=== PATIENT | female | born 1980 | race Caucasian/White ===

== ENCOUNTER 2016-12-25 10:41 | Emergency (ER) | payer MEDICAID ==
[2016-12-25 11:14] VITALS: RESP 16
--- NOTE | 2016-12-25 12:20 | ED ---
General Adult HPI - General Chief complaint: Skin/Abscess/Foreign Body Stated complaint: spider bite Time Seen by Provider: 12/25/16 11:53 Source: patient, RN notes reviewed Mode of arrival: ambulatory Limitations: no limitations - History of Present Illness Initial comments: Patient's a 36-year-old female who presents emergency room today with a chief complaint of increased swelling locally to the left lower anterior. Does admit that he noticed bug bite yesterday. Does admit that she was scratched in the left eye by her dog 2 days ago. States she went to urgent care earlier today for some eyedrops. States that they were concerned about this area of swelling locally just beneath the left ear advised to come here to the emergency room. Patient states she feels like it is a bug bite. She does admit to some local tenderness. She denies any drainage. Denies any other complaints or associated symptoms. Patient denies any recent fever, chills, shortness of breath, chest pain, back pain, abdominal pain, nausea or vomiting, numbness or tingling, dysuria or hematuria, constipation or diarrhea, headaches or visual changes, or any other complaints. - Related Data Previous Rx's Medication Instructions Recorded Sulfamethox-Tmp 800-160Mg [Bactrim 1 tab PO Q12HR #20 tab 12/25/16 DS 800-160 mg] Allergies Allergy/AdvReac Type Severity Reaction Status Date / Time No Known Allergies Allergy Verified 12/25/16 11:11 Review of Systems ROS Statement: Those systems with pertinent positive or pertinent negative responses have been documented in the HPI. ROS Other: All systems not noted in ROS Statement are negative. Past Medical History Past Medical History: Thyroid Disorder History of Any Multi-Drug Resistant Organisms: None Reported Additional Past Surgical History / Comment(s): D&C Past Psychological History: No Psychological Hx Reported Smoking Status: Never smoker Past Alcohol Use History: None Reported Past Drug Use History: None Reported General Exam - General Exam Comments Initial Comments: General: The patient is awake and alert, in no distress, and does not appear acutely ill. Eye: Pupils are equal, round and reactive to light, extra-ocular movements are intact. No nystagmus. Redness locally to the left conjunctiva. Right conjunctiva clear. No signs of icterus. Ears, nose, mouth and throat: There are moist mucous membranes and no oral lesions. Neck: The neck is supple, there is no tenderness or JVD. Cardiovascular: There is a regular rate and rhythm. No murmur, rub or gallop is appreciated. Respiratory: Lungs are clear to auscultation, respirations are non-labored, breath sounds are equal. No wheezes, stridor, rales, or rhonchi. Musculoskeletal: Normal ROM, no tenderness. Strength 5/5. Sensation intact. Pulses equal bilaterally 2+. Neurological: A&O x 3. CN II-XII intact, There are no obvious motor or sensory deficits. Coordination appears grossly intact. Speech is normal. Skin: Mild redness no firmness on exam. Local disbelief the left ear. Psychiatric: Cooperative, appropriate mood & affect, normal judgment. Limitations: no limitations Course Vital Signs 12/25/16 11:11 Temperature 98.4 F Pulse Rate 85 Respiratory 16 Rate Blood Pressure 140/91 O2 Sat by Pulse 99 Oximetry Medical Decision Making - Medical Decision Making Patient does have antibiotics to use for the left side. Also be placed on oral antibiotics cover for possible abscess formation just below the left ear. Advised use warm compresses. Advised return if symptoms increase or worsen. Patient states understanding and is in agreement with this plan. Disposition Clinical Impression: Abscess Disposition: HOME SELF-CARE Condition: Good Instructions: Abscess (ED) Additional Instructions: Please use medication as discussed. Please follow-up with family doctor in the next 2 days of symptoms have not improved. Please return to emergency room if the symptoms increase or worsen or for any other concerns. Prescriptions: Sulfamethox-Tmp 800-160Mg [Bactrim DS 800-160 mg] 1 tab PO Q12HR #20 tab Time of Disposition: 12:18
[2016-12-25 12:28] VITALS: BP 138/71; PULSE 110; TEMP 98
== END 2016-12-25 12:50 | disposition home or self-care (01) ==
LOC: EC 10:41
DX: H66.42 Suppurative otitis media, unspecified, left ear (principal)
CPT/HCPCS: 99282

== ENCOUNTER → 2017-01-01 | Outpatient (CLI) | payer MEDICAID ==
--- NOTE | 2017-01-01 19:12 | CT ---
EXAMINATION TYPE: CT soft tissue neck w con DATE OF EXAM: 01/01/2017 6:55 PM COMPARISON: NONE HISTORY: Left sided neck swelling marked by BB CT DLP: 355.1 mGycm Automated exposure control for dose reduction was used. CONTRAST: CT scan of the neck is performed following with IV Contrast, patient injected with 100 mL of Omnipaqu e 300. Axial images are obtained, coronal and sagittal reformatted images are reviewed. FINDINGS: The upper lung corral are clear. There is normal branching pattern of the great vessels on the aortic arch. Thyroid gland is almost absent. This could be a total thyroidectomy. There is normal contrast opacification of the carotid arteries and jugular veins. Parotid glands are symmetric. Submandibular salivary glands are symmetric. There is no sign of a pharyngeal mass. Trache a appears normal. There are a few anterior triangle lymph nodes that measure up to 1.5 cm. There are a few posterior triangle lymph nodes that measure up to 1.2 cm. Cervical spine appears intact. IMPRESSION: Mild cervical adenopathy. There is a superficial 1.3 cm lymph node in the left submandib ular region that is marked is an area of concern. No abscess seen. This is probably palpable.
== END | disposition home or self-care (01) ==
LOC: RADCTMAIN 18:34
PROVIDERS: ATTEND Physician Assistant Medical
DX: R59.0 Localized enlarged lymph nodes (principal)
CPT/HCPCS: 70491; Q9967

== ENCOUNTER → 2017-01-09 | Outpatient (CLI) | payer MEDICAID ==
[2017-01-09 08:51] LABS: Anion Gap 9 mmol/L; Blood Urea Nitrogen 12 mg/dL (7-17); Calcium 9.3 mg/dL (8.4-10.2); Carbon Dioxide 27 mmol/L (22-30); Chloride 106 mmol/L (98-107); Cholesterol 193 mg/dL (<200); Glucose 94 mg/dL (74-99); HDL Cholesterol 50 mg/dL (40-60); Non-African American GFR(MDRD) >60 (>60 ml/min/1.73 sqM); Potassium 4.3 mmol/L (3.5-5.1); Sodium 142 mmol/L (137-145); Triglycerides 138 mg/dL (<150)
== END ==
LOC: LABWHC1 07:27
PROVIDERS: ATTEND Otolaryngology
DX: E06.3 Autoimmune thyroiditis (principal)
CPT/HCPCS: 36415; 80048; 80061; 82306; 84439; 84443; 86376

== ENCOUNTER → 2017-04-10 | Outpatient (CLI) | payer MEDICAID ==
[2017-04-10 08:15] LABS: Basophils # (A) 0.1 k/uL (0-0.2); Basophils % (A) 1 %; Eosinophils # (A) 0.2 k/uL (0-0.7); Eosinophils % (A) 3 %; HCT 36.8 % (34.0-46.0); HDW 2.88; HGB 11.1 gm/dL (11.4-16.0); Hypochromasia Marked; Luc # (Auto) 0.13; Luc % (Auto) 2; Lymphocytes # (A) 1.2 k/uL (1.0-4.8); Lymphocytes % (A) 21 %; MCH 22.3 pg (25.0-35.0); MCHC 30.3 g/dL (31.0-37.0); MCV 73.6 fL (80.0-100.0); Mean Platelet Volume 8.1; Microcytosis Slight; Monocytes # (A) 0.5 k/uL (0-1.0); Monocytes % (A) 9 %; Neutrophils # (A) 3.7 k/uL (1.3-7.7); Neutrophils % (A) 64 %; RDW 15.9 % (11.5-15.5); WBC 5.7 k/uL (3.8-10.6); WBC (Perox) 5.71
[2017-04-10 10:16] LABS: Anion Gap 12 mmol/L; Blood Urea Nitrogen 15 mg/dL (7-17); Calcium 9.4 mg/dL (8.4-10.2); Carbon Dioxide 27 mmol/L (22-30); Chloride 105 mmol/L (98-107); Cholesterol 212 mg/dL (<200); Glucose 99 mg/dL (74-99); HDL Cholesterol 55 mg/dL (40-60); Non-African American GFR(MDRD) >60 (>60 ml/min/1.73 sqM); Potassium 4.4 mmol/L (3.5-5.1); Sodium 144 mmol/L (137-145); Triglycerides 74 mg/dL (<150)
== END | disposition home or self-care (01) ==
LOC: LABWHC1 06:35
PROVIDERS: ATTEND Internal Medicine Endocrinology, Diabetes & Metabolism
DX: E06.3 Autoimmune thyroiditis (principal); E55.9 Vitamin D deficiency, unspecified
CPT/HCPCS: 36415; 80048; 80051; 80061; 82306; 82565; 82947; 84439; 84443; 84481; 84520; 85025

== ENCOUNTER → 2017-07-24 | Outpatient (CLI) | payer MEDICAID | END | disposition home or self-care (01) | LOC: LABWHC1 07:23 | PROVIDERS: ATTEND Internal Medicine Endocrinology, Diabetes & Metabolism | DX: E55.9 Vitamin D deficiency, unspecified (principal); E06.3 Autoimmune thyroiditis | CPT/HCPCS: 36415; 82306; 84439; 84443; 84481 ==

== ENCOUNTER → 2018-01-14 | Outpatient (CLI) | payer MEDICAID ==
[2018-01-14 16:23] LABS: Calcium 9.4 mg/dL (8.4-10.2)
[2018-01-14 16:41] LABS: T4, Free (Free Thyroxine) 0.81 ng/dL (0.78-2.19)
== END | disposition home or self-care (01) ==
LOC: LABWHC1 14:20
PROVIDERS: ATTEND Internal Medicine Endocrinology, Diabetes & Metabolism
DX: E55.9 Vitamin D deficiency, unspecified (principal); E06.3 Autoimmune thyroiditis
CPT/HCPCS: 36415; 82306; 82310; 84439; 84443; 84481

== ENCOUNTER → 2018-02-25 | Outpatient (CLI) | payer MEDICAID ==
[2018-02-25 08:48] LABS: T4, Free (Free Thyroxine) 0.45 ng/dL (0.78-2.19)
== END | disposition home or self-care (01) ==
LOC: LABWHC1 07:50
PROVIDERS: ATTEND Internal Medicine
DX: E06.3 Autoimmune thyroiditis (principal)
CPT/HCPCS: 36415; 84439; 84443

== ENCOUNTER → 2018-04-27 | Outpatient (CLI) | payer MEDICAID ==
[2018-04-27 08:08] LABS: T4, Free (Free Thyroxine) 0.49 ng/dL (0.78-2.19)
== END | disposition home or self-care (01) ==
LOC: LABWHC1 06:49
PROVIDERS: ATTEND Internal Medicine
DX: E06.3 Autoimmune thyroiditis (principal)
CPT/HCPCS: 36415; 84439; 84443

== ENCOUNTER → 2018-07-02 | Outpatient (CLI) | payer MEDICAID ==
--- NOTE | 2018-07-02 15:05 | US ---
EXAMINATION TYPE: US transvaginal DATE OF EXAM: 07/02/2018 COMPARISON: 07/20/2013 CLINICAL HISTORY: N92.0 Menorrhagia. TECHNIQUE: Transvaginal (TV). Date of LMP: 06/16/2018 EXAM MEASUREMENTS: Uterus: 8.6 x 4.6 x 5.6 cm Endometrial Stripe: 1.4 cm Right Ovary: 2.5 x 1.3 x 2.6 cm Left Ovary: 3.2 x 2.2 x 3.2 cm 1. Uterus: Anteverted wnl 2. Endometrium: wnl 3. Right Ovary: wnl 4. Left Ovary: dominant follicle measures 1.2 x 1.2 x 1.7 cm 5. Bilateral Adnexa: wnl 6. Posterior cul-de-sac: no free fluid IMPRESSION: 1. Endometrial thickness is upper limits of normal. Reevaluation at different timing of the menstrual cycle could be performed to exclude endometrial thickening that may relate to endometrial hyperplasi a, polyp or less likely mass. 2. Dominant left ovarian follicle measuring 1.7 cm, likely physiologic.
== END | disposition home or self-care (01) ==
LOC: RADUSWWP 14:05
PROVIDERS: ATTEND Obstetrics & Gynecology
DX: N92.0 Excessive and frequent menstruation with regular cycle (principal)
CPT/HCPCS: 76830

== ENCOUNTER → 2018-07-08 | Outpatient (CLI) | payer MEDICAID ==
[2018-07-08 15:44] LABS: LDL Cholesterol,Calculated 117.4 mg/dL (0.0-131.0); VLDL Calculation 12.6 mg/dL (5.00-40.00)
== END | disposition home or self-care (01) ==
LOC: LABWHC1 07:41
PROVIDERS: ATTEND Obstetrics & Gynecology
DX: Z13.220 Encounter for screening for lipoid disorders (principal)
CPT/HCPCS: 36415; 80061

== ENCOUNTER → 2018-07-19 | Outpatient (CLI) | payer MEDICAID ==
[2018-07-19 15:08] LABS: Basophils % (A) 1 %; Eosinophils # (A) 0.2 k/uL (0-0.7); Eosinophils % (A) 2 %; HCT 38.5 % (34.0-46.0); HGB 11.6 gm/dL (11.4-16.0); Hypochromasia Marked; Lymphocytes # (A) 1.8 k/uL (1.0-4.8); Lymphocytes % (A) 26 %; MCH 21.9 pg (25.0-35.0); MCV 72.9 fL (80.0-100.0); Mean Platelet Volume 7.6; Microcytosis Slight; Monocytes # (A) 0.5 k/uL (0-1.0); Monocytes % (A) 7 %; Neutrophils # (A) 4.3 k/uL (1.3-7.7); Neutrophils % (A) 63 %; Platelet Count 170 k/uL (150-450); RBC 5.27 m/uL (3.80-5.40); RDW 15.1 % (11.5-15.5); WBC 6.8 k/uL (3.8-10.6)
== END | disposition home or self-care (01) ==
LOC: LABPAT 14:43
PROVIDERS: ATTEND Obstetrics & Gynecology
DX: Z01.812 Encounter for preprocedural laboratory examination (principal)
CPT/HCPCS: 36415; 85025

== ENCOUNTER 2018-07-23 06:29 | Day surgery (SDC) | payer MEDICAID ==
[2018-07-20 14:18] VITALS: BMI 23.2
--- NOTE | 2018-07-22 07:50 | P.HPOB ---
History of Present Illness H&P Date: 07/22/18 Chief Complaint: Menorrhagia This patient is a pleasant 37 yr female with longstanding menorrhagia who is presenting for endometrial ablation for treatment. Her has had a vasectomy and she has had a normal pelvic ultrasound. Bleeding is so heavy that it is interfering with daily activities and lifestyle. Mildly anemia from this as well. Review of Systems Genitourinary: Reports as per HPI, Reports menorrhagia Menstruation: Reports as per HPI Past Medical History Past Medical History: Thyroid Disorder Additional Past Medical History / Comment(s): heavy menstral periods History of Any Multi-Drug Resistant Organisms: None Reported Past Surgical History: No Surgical Hx Reported Additional Past Surgical History / Comment(s): D&C Past Anesthesia/Blood Transfusion Reactions: Motion Sickness Past Psychological History: No Psychological Hx Reported Smoking Status: Never smoker Past Alcohol Use History: None Reported Past Drug Use History: None Reported - Past Family History Mother Family Medical History: No Reported History Medications and Allergies Home Medications Medication Instructions Recorded Confirmed Type Ergocalciferol (Vitamin D2) 50,000 unit PO Q14D 07/20/18 07/20/18 History [Drisdol] Thyroid,Pork [[place] Thyroid] 90 mg PO DAILY 07/20/18 07/20/18 History Allergies Allergy/AdvReac Type Severity Reaction Status Date / Time No Known Allergies Allergy Verified 07/20/18 14:14 Exam - OBG Physical Exam Abdomen: bowel sounds normal, no diffuse tenderness, no bruit present, no guarding noted, no hepatomegaly, no splenomegaly, no mass Vulva: both: normal Vagina: normal moisture, no discharge Cervix: no lesion, no discharge Uterus: normal size, normal contour Adnexa: both: normal Results Normal pelvic ultrasound 07/02/2018 Assessment and Plan Assessment: This is a pleasant 37 yr female with longstanding menorrhagia who presents for endometrial ablation for treatment. Plan is hysteroscopy, D&C, and Novasure endometrial ablation. Shanel and I have discussed this surgery and risks: infection, bleeding, possible uterine perforation and/or thermal injury. All of the patients questions have been answered and a written consent obtained. (1) Menorrhagia Status: Chronic Code(s): N92.0 - EXCESSIVE AND FREQUENT MENSTRUATION WITH REGULAR CYCLE SNOMED Code(s): 638837359
[~2018-07-23 06:29] MED LIST: DEXAMETHASONE SOD PHOSPHATE 10 MG/ML 1 ML VIAL IV ONE; HYDROmorphone 0.5 MG/0.5 ML SYRINGE IVP PRN; LACTATED RINGERS 1,000 ML IV SCH; MIDAZOLAM 2 MG/2 ML VIAL IV PRN; ONDANSETRON 4 MG/2 ML VIAL IVP ONE; Pre Op ABX Message 1 EACH MISC MISCELLANE ONE; SCOPOLAMINE 1.5MG/72HR PATCH TRANSDERM ONE
[2018-07-23 06:49] VITALS: RESP 16
[2018-07-23] MEDS ORDERED: LIDOCAINE 1% INJ 10MG/ML (20 ML MDV) ONE (07:52)
[2018-07-23] MEDS ORDERED: fentaNYL (PF) 50 MCG/ML 2 ML AMP ONE (07:52)
[2018-07-23] MEDS ORDERED: PROPOFOL 10 MG/ML 20 ML VIAL IV ONE (07:52)
--- NOTE | 2018-07-23 08:34 | P.OP ---
Date of Procedure: 07/23/18 Preoperative Diagnosis: Menorrhagia Postoperative Diagnosis: Same Procedure(s) Performed: #1: Hysteroscopy. #2: Dilation and curettage. #3: NovaSure endometrial ablation Anesthesia: MAC Surgeon: Lawrence Jasmine Estimated Blood Loss (ml): 10 Urine output (ml): 50 Pathology: other (Uterine curettings) Condition: stable Disposition: PACU Indications for Procedure: Please see dictated H&P for intimate details of this patient's admission. In brief summary this is a pleasant 37-year-old 3 para 2 female with long- standing menorrhagia requesting NovaSure endometrial ablation for treatment. Patient understands the surgery and risks including risks of infection, bleeding , possible uterine perforation, and/or thermal injury. Operative Findings: This patient is a normal appearing endometrial cavity. Description of Procedure: This patient is taken to the operating room where she is laid in the supine position. She subsequently undergoes general mask anesthesia without incident. With an adequate level of anesthesia she is laid in the dorsal lithotomy position. Patient has a vaginal perineal prep and drape. Examination under anesthesia shows a mid position uterus of normal size. A weighted speculum was placed in the posterior vagina. The bladder is drained for 50 mL of clear urine. I then grabbed the anterior lip of the cervix with an Allis clamp. The uterus at this time is sounded to 8.25 cm. Gentle dilation is then done to allow the hysteroscope into the uterine cavity. Using saline solution hysteroscopy is performed and the endometrial cavity is measured to be a length of 5.5 cm. With this done the hysteroscope was removed. Gentle dilation is then done to allow a small curette and the uterine cavity and a gentle but thorough 4 quadrant curettage is done for adequate tissue. With this done the NovaSure device is then opened and appears to be intact. It is seated at a length of 5.5 cm and a width of 3.5 cm. It is enabled at a power setting of 106 W for 80 seconds. Sure device is then removed and appears to be intact. Hysteroscopy is done once again and the endometrial cavity appears to be ablated up to the endocervix. Excellent results are noted. At this time the procedure is ended. The Allis clamp weighted speculum removed. All counts are correct 3. There are no complications. Patient is awakened from anesthesia and taken to the recovery room in satisfactory condition.
[2018-07-23 08:37] VITALS: TEMP 97.9
[2018-07-23] MEDS ORDERED: KETOROLAC 30 MG/ML 1 ML VIAL IVP ONE (08:38)
[2018-07-23 10:29] VITALS: BP 125/85; PULSE 83
== END 2018-07-23 10:52 | disposition home or self-care (01) ==
LOC: OR 06:29
PROVIDERS: ATTEND Obstetrics & Gynecology
DX: N92.0 Excessive and frequent menstruation with regular cycle (principal); E07.9 Disorder of thyroid, unspecified; Z79.890 Hormone replacement therapy
CPT/HCPCS: 81025; 88305; 58563; J1100; J2405; J2001; J3010; J1885; J2704

== ENCOUNTER → 2018-10-27 | Outpatient (CLI) | payer MEDICAID ==
--- NOTE | 2018-10-28 09:28 | MM ---
Reason for exam: screening (asymptomatic). Last mammogram was performed 3 years and 7 months ago. Physical Findings: A clinical breast exam by your physician is recommended on an annual basis and results should be correlated with mammographic findings. MG 3D Screening Mammo W/Cad Bilateral CC and MLO view(s) were taken. Prior study comparison: April 04, 2015, bilateral MG screening mammo w CAD. The breast tissue is heterogeneously dense. This may lower the sensitivity of mammography. No significant changes when compared with prior studies. ASSESSMENT: Negative, BI-RAD 1 RECOMMENDATION: Routine screening mammogram of both breasts in 1 year.
== END | disposition home or self-care (01) ==
LOC: RADMAMWWP 06:47
PROVIDERS: ATTEND Obstetrics & Gynecology
DX: Z12.31 Encounter for screening mammogram for malignant neoplasm of breast (principal)
CPT/HCPCS: 77063; 77067

== ENCOUNTER → 2019-04-18 | Outpatient (CLI) | payer MEDICAID ==
[2019-04-18 16:09] LABS: T4, Free (Free Thyroxine) 0.8 ng/dL (0.80-1.80)
== END | disposition home or self-care (01) ==
LOC: LABWHC1 09:06
PROVIDERS: ATTEND Internal Medicine
DX: E55.9 Vitamin D deficiency, unspecified (principal); E06.3 Autoimmune thyroiditis
CPT/HCPCS: 36415; 82306; 84439; 84443

== ENCOUNTER → 2020-05-09 | Outpatient (CLI) | payer MEDICAID ==
--- NOTE | 2020-05-10 10:27 | MM ---
Reason for exam: screening (asymptomatic). Last mammogram was performed 1 year and 6 months ago. History: Patient is postmenopausal. Physical Findings: A clinical breast exam by your physician is recommended on an annual basis and results should be correlated with mammographic findings. MG 3D Screening Mammo W/Cad Bilateral CC and MLO view(s) were taken. Prior study comparison: October 27, 2018, bilateral MG 3d screening mammo w/cad. April 04, 2015, bilateral MG screening mammo w CAD. The breast tissue is heterogeneously dense. This may lower the sensitivity of mammography. There is no discrete abnormality. ASSESSMENT: Negative, BI-RAD 1 RECOMMENDATION: Routine screening mammogram of both breasts in 1 year.
== END | disposition home or self-care (01) ==
LOC: RADMAMWWP 07:25
PROVIDERS: ATTEND Obstetrics & Gynecology
DX: Z12.31 Encounter for screening mammogram for malignant neoplasm of breast (principal)
CPT/HCPCS: 77063; 77067

== ENCOUNTER → 2020-07-11 | Outpatient (CLI) | payer MEDICAID ==
[2020-07-11 16:44] LABS: Chol/HDL Ratio 4.46; LDL Cholesterol,Calculated 158.2 mg/dL (0.0-131.0); VLDL Calculation 21.8 mg/dL (5.00-40.00)
[2020-07-11 17:11] LABS: T4, Free (Free Thyroxine) 0.7 ng/dL (0.80-1.80)
== END | disposition home or self-care (01) ==
LOC: LABWHC1 09:00
PROVIDERS: ATTEND Internal Medicine
DX: E55.9 Vitamin D deficiency, unspecified (principal); E78.5 Hyperlipidemia, unspecified; E06.3 Autoimmune thyroiditis
CPT/HCPCS: 36415; 80061; 82306; 84439; 84443

== ENCOUNTER → 2021-04-03 | Outpatient (CLI) | payer MEDICAID ==
[2021-04-03 22:52] LABS: Basophils # (A) 0.04 X 10*3/uL (0.00-0.10); Basophils % (A) 0.5 %; Eosinophils # (A) 0.18 X 10*3/uL (0.04-0.35); Eosinophils % (A) 2.2 %; HCT 45.2 % (37.2-46.3); HGB 14.6 g/dL (12.0-15.0); Lymphocytes % (A) 24.7 %; MCH 29.3 pg (27.0-32.0); MCHC 32.3 g/dL (32.0-37.0); MCV 90.8 fL (80.0-97.0); Mean Platelet Volume 12.1 fL (9.5-12.2); Monocytes # (A) 0.71 X 10*3/uL (0.20-1.00); Monocytes % (A) 8.8 %; Neutrophils # (A) 5.14 X 10*3/uL (1.80-7.70); Neutrophils % (A) 63.4 %; Platelet Count 198 X 10*3/uL (140-440); RBC 4.98 X 10*6/uL (4.10-5.20); RDW 12.7 % (11.5-14.5)
[2021-04-04 00:44] LABS: Erythrocyte Sedimentation Rate 3 mm/Hr (0-20)
[2021-04-04 03:52] LABS: ALT 19 U/L (8-44); AST 19 U/L (13-35); African American GFR (CKD) 105.4 (60.0-200.0); Albumin/Globulin Ratio 1.74 (1.60-3.17); Alkaline Phosphatase 91 U/L (41-126); C Reactive Protein <0.4 mg/dL (0.0-0.8); Calcium 9.4 mg/dL (8.7-10.3); Carbon Dioxide 26.8 mmol/L (21.6-31.8); Chloride 106 mmol/L (96-109); Chol/HDL Ratio 4.19; Cholesterol 218 mg/dL (0-200); Globulin 2.7 g/dL (1.6-3.3); Glucose 132 mg/dL (70-110); LDL Cholesterol,Calculated 137.4 mg/dL (0.0-131.0); Non-African American GFR(CKD) 90.9 (60.0-200.0); Potassium 4.5 mmol/L (3.5-5.5); Sodium 148 mmol/L (135-145); Total Bilirubin 1.1 mg/dL (0.3-1.2); Total Protein 7.4 g/dL (6.2-8.2)
== END | disposition home or self-care (01) ==
LOC: LABWHC1 08:10
PROVIDERS: ATTEND Internal Medicine
DX: E03.8 Other specified hypothyroidism (principal); E78.5 Hyperlipidemia, unspecified; K13.29 Other disturbances of oral epithelium, including tongue; H53.8 Other visual disturbances; R51.9 Headache, unspecified; R20.2 Paresthesia of skin
CPT/HCPCS: 36415; 80053; 80061; 84439; 84443; 84481; 85025; 85652; 86140; 86618

== ENCOUNTER → 2021-04-24 | Outpatient (CLI) | payer MEDICAID ==
--- NOTE | 2021-04-25 01:46 | MR ---
EXAMINATION TYPE: MR brain wo/w con DATE OF EXAM: 04/24/2021 COMPARISON: None HISTORY: Headaches, Dizziness, Numbness left side of Tounge and left Fingertips lasting only seconds CONTRAST: Standard multiplanar, multisequence MRI departmental protocol utilizing 7.5 mL intravenous Gadavist g adolinium contrast. Ventricles have normal size. There is no mass effect nor midline shift. There is no sign of intracran ial hemorrhage. Diffusion images show no evidence of an acute infarct. The angel-white matter structur es have fairly normal signal pattern. There is no evidence of cerebral edema. Brainstem is intact. Th ere is no evidence of orbital mass. Corpus callosum appears normal. Sella turcica is normal. There is no evidence of posterior fossa mass. Contrast images show no pathologic enhancement. There is normal enhancement of the venous sinuses. Pi tuitary stalk is in the midline. Optic chiasm appears normal. IMPRESSION: Negative MR scan of the brain.
== END | disposition home or self-care (01) ==
LOC: RADMRIMAIN 06:05
PROVIDERS: ATTEND Family Medicine
DX: R42 Dizziness and giddiness (principal)
CPT/HCPCS: 70553; A9585

== ENCOUNTER → 2021-07-15 | Outpatient (CLI) | payer MEDICAID ==
--- NOTE | 2021-07-16 10:29 | MM ---
Reason for exam: screening (asymptomatic). Last mammogram was performed 1 year and 2 months ago. History: Patient is postmenopausal. Physical Findings: A clinical breast exam by your physician is recommended on an annual basis and results should be correlated with mammographic findings. MG 3D Screening Mammo W/Cad Bilateral CC and MLO view(s) were taken. Prior study comparison: May 09, 2020, bilateral MG 3d screening mammo w/cad. October 27, 2018, bilateral MG 3d screening mammo w/cad. The breast tissue is heterogeneously dense. This may lower the sensitivity of mammography. There is no discrete abnormality. ASSESSMENT: Negative, BI-RAD 1 RECOMMENDATION: Routine screening mammogram of both breasts in 1 year.
== END | disposition home or self-care (01) ==
LOC: RADMAMWWP 07:16
PROVIDERS: ATTEND Obstetrics & Gynecology
DX: Z12.31 Encounter for screening mammogram for malignant neoplasm of breast (principal); Z78.0 Asymptomatic menopausal state
CPT/HCPCS: 77063; 77067

== ENCOUNTER → 2021-07-18 | Outpatient (CLI) | payer MEDICAID ==
[2021-07-18 15:24] LABS: HGB 12.3 g/dL (12.0-15.0); MCHC 32.4 g/dL (32.0-37.0); MCV 86.4 fL (80.0-97.0); Mean Platelet Volume 11.4 fL (9.5-12.2); Platelet Count 187 X 10*3/uL (140-440); RDW 11.6 % (11.5-14.5); WBC 5.48 X 10*3/uL (4.50-10.00)
[2021-07-18 19:23] LABS: African American GFR (CKD) 121.5 (60.0-200.0); Albumin 4.3 g/dL (3.8-4.9); Albumin/Globulin Ratio 1.91 (1.60-3.17); BUN/Creat Ratio 16.46 Ratio (12.00-20.00); Blood Urea Nitrogen 11.7 mg/dL (9.0-27.0); Calcium 9.1 mg/dL (8.7-10.3); Carbon Dioxide 24.7 mmol/L (21.6-31.8); Chol/HDL Ratio 5.17 Ratio; Globulin 2.2 g/dL (1.6-3.3); HDL Cholesterol 40.6 mg/dL (40.00-60.00); LDL Cholesterol,Calculated 149.6 mg/dL (0.0-131.0); Non-African American GFR(CKD) 104.9 (60.0-200.0); Potassium 4.3 mmol/L (3.5-5.5); Total Bilirubin 0.6 mg/dL (0.30-1.20); Total Protein 6.5 g/dL (6.2-8.2); Triglycerides 99.2 mg/dL (0.00-149.00); VLDL Calculation 19.84 mg/dL (5.00-40.00)
== END | disposition home or self-care (01) ==
LOC: LABWHC1 08:41
PROVIDERS: ATTEND Obstetrics & Gynecology
DX: Z13.1 Encounter for screening for diabetes mellitus (principal); E06.3 Autoimmune thyroiditis; E78.5 Hyperlipidemia, unspecified; E55.9 Vitamin D deficiency, unspecified
CPT/HCPCS: 36415; 80053; 80061; 82306; 84443; 85027

== ENCOUNTER → 2021-07-25 | Outpatient (CLI) | payer MEDICAID | END | disposition home or self-care (01) | LOC: LABWHC1 14:50 | PROVIDERS: ATTEND Obstetrics & Gynecology | DX: Z13.1 Encounter for screening for diabetes mellitus (principal) | CPT/HCPCS: 36415; 83036 ==

== ENCOUNTER → 2022-08-23 | Outpatient (CLI) | payer MEDICAID ==
[2022-08-23 16:17] LABS: HCT 44.4 % (37.2-46.3); HGB 14.1 g/dL (12.0-15.0); MCH 27.8 pg (27.0-32.0); MCHC 31.8 g/dL (32.0-37.0); MCV 87.4 fL (80.0-97.0); Mean Platelet Volume 11.8 fL (9.5-12.2); NRBC Per 100 WBC 0 /100 WBCS (0.0-0.0); Platelet Count 194 X 10*3/uL (140-440); RBC 5.08 X 10*6/uL (4.10-5.20); RDW 12.1 % (11.5-14.5); WBC 5.46 X 10*3/uL (4.50-10.00)
[2022-08-23 16:36] LABS: ALT 20 U/L (8-44); AST 33 U/L (13-35); African American GFR (CKD) 123.4 (60.0-200.0); Albumin 3.9 g/dL (3.8-4.9); Albumin/Globulin Ratio 1.57 (1.60-3.17); Alkaline Phosphatase 79 U/L (41-126); BUN/Creat Ratio 16.96 Ratio (12.00-20.00); Blood Urea Nitrogen 11.5 mg/dL (9.0-27.0); Calcium 8.9 mg/dL (8.7-10.3); Carbon Dioxide 25.7 mmol/L (20.0-27.5); Chloride 105 mmol/L (96-109); Chol/HDL Ratio 5.01 Ratio; Globulin 2.5 g/dL (1.6-3.3); Glucose 93 mg/dL (70-110); LDL Cholesterol,Calculated 149.1 mg/dL (0.0-131.0); Non-African American GFR(CKD) 106.5 (60.0-200.0); Potassium 4.2 mmol/L (3.5-5.5); Sodium 142 mmol/L (135-145); Total Protein 6.5 g/dL (6.2-8.2); Uric Acid 4.3 mg/dL (2.9-7.7)
[2022-08-23 17:34] LABS: Rheumatoid Factor, Qnt <10 IU/mL (0-15)
[2022-08-23 18:40] LABS: Erythrocyte Sedimentation Rate 6 mm/Hr (0-20)
== END | disposition home or self-care (01) ==
LOC: LABWHC1 10:32
PROVIDERS: ATTEND Family Medicine
DX: Z13.220 Encounter for screening for lipoid disorders (principal); M25.60 Stiffness of unspecified joint, not elsewhere classified; R60.1 Generalized edema; R20.2 Paresthesia of skin; E03.8 Other specified hypothyroidism; R73.09 Other abnormal glucose
CPT/HCPCS: 36415; 80053; 80061; 82306; 83036; 84439; 84443; 84550; 85027; 85652; 86038; 86140; 86431

== ENCOUNTER → 2022-09-11 | Outpatient (CLI) | payer MEDICAID | END | disposition home or self-care (01) | LOC: LABWHC1 10:18 | PROVIDERS: ATTEND Internal Medicine Rheumatology | DX: Z53.9 Procedure and treatment not carried out, unspecified reason (principal) ==

== ENCOUNTER → 2022-09-11 | Outpatient (CLI) | payer MEDICAID ==
--- NOTE | 2022-09-11 10:54 | XR ---
EXAMINATION TYPE: XR pelvis AP view DATE OF EXAM: 09/11/2022 10:45 AM INDICATION: Patient age:Female; 42 years old; Reason for study: M54.2, M54.50, R22.33, R22.40; COMPARISON: None TECHNIQUE: The pelvis was examined in a single projection. FINDINGS: There is no evidence of fracture or dislocation. There is no soft tissue abnormality. No a bnormal calcifications are present. Multilevel degenerative changes of the lower spine. Mild osteophy te formation of the superior acetabulum bilaterally. Mild degeneration changes of the visualized spin e. IMPRESSION: No acute osseous pathology.
--- NOTE | 2022-09-11 10:56 | XR ---
EXAMINATION TYPE: XR hand complete bilateral, XR wrist complete BILATERAL DATE OF EXAM: 09/11/2022 10:46 AM INDICATION: Patient age:Female; 42 years old; Reason for study: M54.2, M54.50, R22.33, R22.40; [facility]. COMPARISON: None TECHNIQUE: Frontal, lateral and oblique views of the bilateral hands and wrists were obtained. FINDINGS: Normal alignment of the visualized joints. No acute osseous pathology is identified. Mild diffuse soft tissue swelling of the extremities. Scattered multifocal osteophytosis changes of the vi sualized joints. IMPRESSION: 1. No acute osseous pathology. 2. Bilateral soft tissue swelling, consider systemic causes. 3. Minimal scattered osteoarthrosis changes.
--- NOTE | 2022-09-11 10:57 | XR ---
EXAMINATION TYPE: XR foot complete bilateral, XR ankle complete bilateral DATE OF EXAM: 09/11/2022 10:46 AM INDICATION: Patient age:Female; 42 years old; Reason for study: M54.2, M54.50, R22.33, R22.40; COMPARISON: Contralateral side. TECHNIQUE: Bilateral foot and ankles were examined in the AP, oblique, and lateral projections. FINDINGS: No evidence of any acute osseous pathology. No evidence of soft tissue swelling. Joints are preserve d. Soft tissue swelling throughout the lower extremities. Calcaneal plantar spurring noted bilaterall y. Calcaneal enthesophyte formation bilaterally. Scattered multifocal degeneration changes which are mild. Os trigonum noted posterior right ankle joint. IMPRESSION: 1. No evidence of acute fracture. 2. Bilateral soft tissue swelling, consider systemic causes. 3. Mild multifocal osteoarthrosis.
--- NOTE | 2022-09-11 10:59 | XR ---
EXAMINATION TYPE: XR cervical spine limited DATE OF EXAM: 09/11/2022 10:46 AM INDICATION: Patient age:Female; 42 years old; Reason for study: M54.2, M54.50, R22.33, R22.40; [facility]. COMPARISON: None TECHNIQUE: The cervical spine was imaged in frontal, lateral, odontoid and bilateral oblique. FINDINGS: The osseous structures show normal alignment without evidence of an acute fracture. There are minimal osteophytes noted throughout the cervical spine on the anterior and lateral aspects of the vertebral bodies. The intervertebral disk spaces are preserved. Pedicles are intact. Soft tissues are within normal limits. The odontoid appears intact. IMPRESSION: 1. No fracture or dislocation. 2. Minimal degenerative disc disease changes of the cervical spine.
--- NOTE | 2022-09-11 11:00 | XR ---
EXAMINATION TYPE: XR lumbosacral spine min 4V DATE OF EXAM: 09/11/2022 10:45 AM INDICATION: Patient age:Female; 42 years old; Reason for study: M54.2, M54.50, R22.33, R22.40; COMPARISON: None TECHNIQUE: Frontal, lateral and coned in L5-S1 lateral views of the spine. FINDINGS: No evidence of any acute osseous pathology. No evidence of loss of vertebral body height i s seen. There is normal alignment of the lumbar vertebral bodies. Minimal marginal osteophyte formati on throughout the visualized spine. There is facet joint arthropathy throughout the spine. Scattered at least mild neural foraminal stenosis. IMPRESSION: 1. No acute fracture. 2. Mild disc degeneration.
[2022-09-11 15:28] LABS: Appearance,Urine Cloudy (Clear); Bacteria,Urine Many /hpf; Bilirubin,Urine Negative (Negative); Blood,Urine Negative (Negative); Budding Yeast,Urine Few /hpf; Color,Urine Yellow; Glucose,Urine (UA) Negative (Negative); Ketones,Urine Negative (Negative); Leukocyte Esterase,Urine Large (Negative); Mucus,Urine Rare /hpf; Nitrite,Urine Negative (Negative); PH, Urine 5.5 (5.0-8.0); Protein,Urine Trace (Negative); RBC,Urine 7 /hpf (0-5); Specific Gravity,Urine 1.022 (1.001-1.035); Squamous Epithelial Cell,Urine 27 /hpf (0-4); Urobilinogen,Urine <2.0 mg/dL (<2.0); WBC,Urine 25 /hpf (0-5)
[2022-09-11 22:54] LABS: Hepatitis B Surface Antigen Nonreactive (Nonreactive); Hepatitis C IgG Antibody Nonreactive (Nonreactive)
[2022-09-11 23:27] LABS: Protein, Total 6.7 g/dL (6.2-8.2)
[2022-09-12 01:28] LABS: Anti-DNA, DS unit <1.0 IU/mL; Anti-Smith Ab Interp NEGATIVE (NEGATIVE); Centromere Antibody <0.2 AI; Centromere Antibody Interp NEGATIVE (NEGATIVE); DNA Double-Stranded NEGATIVE (NEGATIVE); Scleroderma SC-70 Ab <0.2 AI
[2022-09-12 01:30] LABS: Cyclic Citrull Pep IgG Unit <0.5 U/mL; Cyclic Citrullinated Pep IgG NEGATIVE (NEGATIVE)
[2022-09-12 01:38] LABS: Cardiolipin Ab IgG Interp NEGATIVE (NEGATIVE); Cardiolipin Ab IgM Interp NEGATIVE (NEGATIVE); Cardiolipin IgA Antibody <2.0 U/mL; Cardiolipin IgM Antibody <1.5 U/mL
[2022-09-12 10:29] LABS: Aldolase 11.9 U/L (1.2-7.6)
[2022-09-12 10:30] LABS: Angiotensin-1 Converting Enz. 89 U/L (8-52)
[2022-09-12 10:33] LABS: Free Lambda Lt Chain Qnt, Seru 1.18 mg/dL (0.57-2.63)
[2022-09-12 11:54] LABS: HLA B27 NEGATIVE
[2022-09-12 12:52] LABS: Histone Antibody 0.7 UNITS (<1.0)
[2022-09-12 13:30] LABS: APTT 44 Sec(s) (<43); APTT 1:1 Mix 40 Sec(s) (<43); Dilute Russell Viper Venom 44 Sec(s) (<44)
[2022-09-12 14:11] LABS: C-ANCA <1:20 Titer (<1:20)
== END | disposition home or self-care (01) ==
LOC: RADXRMAIN 09:18
PROVIDERS: ATTEND Internal Medicine Rheumatology
DX: M19.041 Primary osteoarthritis, right hand (principal); M79.89 Other specified soft tissue disorders; M19.072 Primary osteoarthritis, left ankle and foot; M19.071 Primary osteoarthritis, right ankle and foot; M50.30 Other cervical disc degeneration, unspecified cervical region; M51.36 Other intervertebral disc degeneration, lumbar region; R22.33 Localized swelling, mass and lump, upper limb, bilateral; R22.40 Localized swelling, mass and lump, unspecified lower limb
CPT/HCPCS: 72040; 72110; 72170; 81001; 82085; 82164; 82550; 83516; 83520; 83883; 84165; 85613; 85730; 86038; 86147; 86160; 86162; 86200; 86225; 86235; 86255; 86334; 86803; 86812; 87340

== ENCOUNTER → 2022-09-16 | Outpatient (CLI) | payer MEDICAID ==
--- NOTE | 2022-09-16 09:02 | MM ---
Reason for Exam: Screening (asymptomatic). Last mammogram was performed 1 year(s) and 2 month(s) ago. Patient History: Menarche at age 15. First Full-Term at age 25. Postmenopausal. Risk Values: Iris 5 year model risk: 0.8%. NCI Lifetime model risk: 9.8%. Prior Study Comparison: 10/27/2018 Bilateral Screening Mammogram, [facility]. 05/09/2020 Bilateral Screening Mammogram, [facility]. 07/15/2021 Bilateral Screening Mammogram, [facility]. Tissue Density: The breast tissue is heterogeneously dense. This may lower the sensitivity of mammography. Findings: Analyzed By CAD. There is no suspicious group of microcalcifications or new suspicious mass in either breast. Overall Assessment: Negative, BI-RAD 1 Management: Screening Mammogram of both breasts in 1 year. A clinical breast exam by your physician is recommended on an annual basis and results should be correlated with mammographic findings. [facility] will attempt to contact patient to return for supplemental views and ultrasound if indicated. Electronically signed and approved by: Nathaniel Swift DO
== END | disposition home or self-care (01) ==
LOC: RADMAMWWP 07:39
PROVIDERS: ATTEND Obstetrics & Gynecology
DX: Z12.31 Encounter for screening mammogram for malignant neoplasm of breast (principal); Z78.0 Asymptomatic menopausal state
CPT/HCPCS: 77063; 77067

== ENCOUNTER → 2022-10-07 | Outpatient (CLI) | payer MEDICAID ==
--- NOTE | 2022-10-07 12:07 | CT ---
EXAMINATION TYPE: CT ChestAbdPelvis w con DATE OF EXAM: 10/07/2022 COMPARISON: 10/08/2010 HISTORY: Bilateral extremity and generalized edema. Water oral prep CT DLP: 902.20 mGycm CONTRAST: CT scan of the chest, abdomen and pelvis is performed with Oral Contrast and with IV Contrast, patien t injected with 70 mL of Isovue 300. CT Chest: LUNGS: The lungs are clear and free of infiltrate or atelectasis. No pulmonary nodule or mass is det ected. No pleural effusion or CT evidence of interstitial lung disease. MEDIASTINUM: Thoracic aorta is of normal caliber. The heart is not enlarged. No evidence for media stinal mass or adenopathy. HILAR STRUCTURES: No evidence for mass. No hilar adenopathy is appreciated. OTHER: No significant abnormality. CONTRAST CT ABDOMEN AND PELVIS FINDINGS: LIVER/GB: No calcified gallstones. No space occupying hepatic lesion. Biliary tree is of normal ca liber. PANCREAS: No inflammation. No distinct mass. SPLEEN: Mild splenomegaly at 13.3 cm craniocaudal dimension. No lesion seen. ADRENALS: No nodule. No thickening. KIDNEYS/BLADDER: There is evidence of a horseshoe kidney. No hydronephrosis. No nephrolithiasis. N o distinct renal mass. BOWEL: Normal appendix. Normal bowel caliber. No inflammation. GENITAL ORGANS: Left ovarian cystic lesion measuring 0.2 cm. Consider ultrasound correlation. Uterus and right ovary are unremarkable. LYMPH NODES: No greater than 1cm abdominal or pelvic lymph nodes are appreciated. AORTA: No significant abnormality. OSSEOUS STRUCTURES: No significant abnormality is seen. OTHER: No significant additional abnormality is seen. IMPRESSION: 1. Mild splenomegaly. 2. Horseshoe kidney. 3.Left ovarian cystic lesion measuring 0.2 cm. Consider ultrasound correlation.
== END | disposition home or self-care (01) ==
LOC: RADCTMAIN 07:52
PROVIDERS: ATTEND Internal Medicine Rheumatology
DX: R16.1 Splenomegaly, not elsewhere classified (principal); N83.202 Unspecified ovarian cyst, left side; Q63.1 Lobulated, fused and horseshoe kidney; R60.1 Generalized edema
CPT/HCPCS: 71260; 74177; Q9967

== ENCOUNTER → 2022-10-14 | Outpatient (CLI) | payer MEDICAID ==
[2022-10-14 16:14] LABS: Rheumatoid Factor, Qnt <10 IU/mL (0-15)
[2022-10-14 20:22] LABS: Cyclic Citrull Pep IgG Unit <0.5 U/mL; Cyclic Citrullinated Pep IgG NEGATIVE (NEGATIVE)
[2022-10-15 09:43] LABS: Aldolase 8.3 U/L (1.2-7.6)
== END | disposition home or self-care (01) ==
LOC: LABWHC1 09:19
PROVIDERS: ATTEND Internal Medicine Rheumatology
DX: M79.643 Pain in unspecified hand (principal); M25.569 Pain in unspecified knee; M25.519 Pain in unspecified shoulder; M25.579 Pain in unspecified ankle and joints of unspecified foot; R74.8 Abnormal levels of other serum enzymes; R20.2 Paresthesia of skin; R60.0 Localized edema
CPT/HCPCS: 36415; 82085; 82164; 85652; 86038; 86140; 86200; 86431

== ENCOUNTER → 2022-12-30 | Outpatient (CLI) | payer MEDICAID ==
[2022-12-30 20:40] LABS: Basophils # (A) 0.04 X 10*3/uL (0.00-0.10); Basophils % (A) 0.6 %; Eosinophils # (A) 0.12 X 10*3/uL (0.04-0.35); Eosinophils % (A) 1.7 %; HCT 44.2 % (37.2-46.3); HGB 14.3 g/dL (12.0-15.0); Immature Grans, Automated 0.3 %; Lymphocytes # (A) 1.13 X 10*3/uL (0.90-5.00); Lymphocytes % (A) 15.6 %; MCH 27.4 pg (27.0-32.0); MCHC 32.4 g/dL (32.0-37.0); MCV 84.8 fL (80.0-97.0); Mean Platelet Volume 11.6 fL (9.5-12.2); Monocytes # (A) 0.46 X 10*3/uL (0.20-1.00); Monocytes % (A) 6.3 %; NRBC Per 100 WBC 0 /100 WBCS (0.0-0.0); Neutrophils # (A) 5.49 X 10*3/uL (1.80-7.70); Neutrophils % (A) 75.5 %; Platelet Count 208 X 10*3/uL (140-440); RBC 5.21 X 10*6/uL (4.10-5.20); RDW 13.4 % (11.5-14.5); WBC 7.26 X 10*3/uL (4.50-10.00)
[2022-12-30 23:25] LABS: Carbon Dioxide 28.4 mmol/L (20.0-27.5); Chloride 103 mmol/L (96-109); Potassium 4.1 mmol/L (3.5-5.5); Sodium 142 mmol/L (135-145)
== END | disposition home or self-care (01) ==
LOC: LABPAT 09:12
PROVIDERS: ATTEND Internal Medicine
DX: Z01.812 Encounter for preprocedural laboratory examination (principal); E06.3 Autoimmune thyroiditis; G56.01 Carpal tunnel syndrome, right upper limb; R60.1 Generalized edema
CPT/HCPCS: 80051; 83880; 84443; 85025

== ENCOUNTER → 2023-01-07 | Day surgery (SDC) | payer MEDICAID ==
[2023-01-01 16:25] VITALS: BMI 25.1
--- NOTE | 2023-01-05 12:33 | P.HPOR ---
History of Present Illness H&P Date: 01/05/23 Chief Complaint: Right carpal tunnel syndrome Subjective: This is a 42 year old female that presents today for follow up evaluation regarding several month history of bilateral hand and wrist swelling and right- sided hand numbness, isolated to the thumb, index, middle, and ring finger. Patient states she first noticed the symptoms back in July 2022. She is in the middle of being worked up for possible sarcoidosis and is currently on prednisone, which has alleviated some of her symptoms. 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 She has noticed diffuse numbness that is now constant, specifically to the right hand but has noticed improvement since initiation of prednisone. She denies any injury or inciting event. 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 She complains of tightness in the palm and severe restricted motion of the right and left hands/wrist since July 2022. Physical Examination: RUE: AIN/PIN/Radial/Ulnar/Median motor intact. Radial/Ulnar/Median SILT. 2+/4 Radial/Ulnar pulses palpated. 5/5 APB, 5/5 FDI. Negative Finkelsteins, negative CMC grind, positive Durkan's compression. wrist flexion, 15, wrist extension, 60. Prominent soft tissue mass in the hypothenar region. Congenital flexion deformity of the small finger PIP joint. Diffuse soft tissue edema/swelling throughout wrist/hand with somewhat of a fibrotic feeling of the wrist/palm. LUE: AIN/PIN/Radial/Ulnar/Median motor intact. Radial/Ulnar/Median SILT. 2+/4 Radial/Ulnar pulses palpated. 5/5 APB, 5/5 FDI. Negative Finkelsteins, negative CMC grind, negative Durkan's compression. Prominent soft tissue mass in the hypothenar region. Wrist flexion, 15, wrist extension, 30. Diffuse soft tissue edema/swelling throughout wrist/hand with somewhat of a fibrotic feeling of the wrist/palm. Imaging & EMG/NCV Imaging: MRI of the right hand on 11/24/22 demonstrates camptodactyly of the small finger with flexion deformity present at the small finger PIP joint with mild sera edema present at distal end of proximal phalanx. MRI of the right wrist on 11/24/22 demonstrates increased joint fluid at the pisotriquetral joint with what appears to be a relatively large pisiform bone in comparison to all other carpal bones. Diffuse synovitis surrounding flexor tendons. EMG/NCV of the right upper extremity demonstrates moderate/severe carpal tunnel syndrome with denervation. Non-recordable signal in median nerve distribution. Impression: 1.) Right carpal tunnel syndrome, severe. 2.) Right small finger camptodactyly 3.) Possible Sarcoidosis Plan: Diagnosis and treatment options were discussed with the patient. Complexity of her presentation was discussed and currently she has experience a rapid deterioration in stiffness and ROM in both wrists. MRI revealed diffuse synovitis of the wrist specifically to the flexor tendons which seems to be improving with steroids. I still recommend open carpal tunnel release for her severe right carpal tunnel syndrome. Risks and benefits of surgery including bleeding, infection, damage to surrounding tissue, need for further surgery, residual numbness were discussed and the patient wished to go forward with surgery. The patient is agreeable with this plan. -Wilton Dickinson DO Orthopedic Hand/Upper Extremity Surgeon Past Medical History Past Medical History: Thyroid Disorder Additional Past Medical History / Comment(s): Inflammatory arthritis, carpal tunnel syndrome right hand. History of Any Multi-Drug Resistant Organisms: None Reported Past Surgical History: Uterine Ablation Additional Past Surgical History / Comment(s): D&C Past Anesthesia/Blood Transfusion Reactions: Motion Sickness Additional Past Anesthesia/Blood Transfusion Reaction / Comment(s): RECEIVES PATCH FOR MOTION SICKNESS Past Psychological History: No Psychological Hx Reported Smoking Status: Never smoker Past Alcohol Use History: Occasional Past Drug Use History: None Reported Medications and Allergies Home Medications Medication Instructions Recorded Confirmed Type Ergocalciferol (Vitamin D2) 50,000 unit PO Q14D 07/20/18 01/01/23 History [Drisdol] Thyroid,Pork [[place] Thyroid] 90 mg PO DAILY 07/20/18 01/01/23 History Hydroxychloroquine Sulfate 200 mg PO BID 01/01/23 01/01/23 History [Plaquenil] predniSONE 5 mg PO DAILY 01/01/23 01/01/23 History Allergies Allergy/AdvReac Type Severity Reaction Status Date / Time No Known Allergies Allergy Verified 01/01/23 16:04 Physical Examination Osteopathic Statement: *. No significant issues noted on an osteopathic structural exam other than those noted in the History and Physical/Consult.
[~2023-01-07] MED LIST changes: +BUPIVACAINE (PF) 0.5% 30 ML VIAL SQ ONE; -DEXAMETHASONE SOD PHOSPHATE 10 MG/ML 1 ML VIAL IV ONE; +DEXAMETHASONE SOD PHOSPHATE 4 MG/ML 1 ML VIAL IVP ONE; -HYDROmorphone 0.5 MG/0.5 ML SYRINGE IVP PRN; +LIDOCAINE 1% (10MG/ML) FOR IV START INTRADERMA PRN; +LIDOCAINE 1% INJ 10MG/ML (20 ML MDV) SQ ONE; -MIDAZOLAM 2 MG/2 ML VIAL IV PRN; +MIDAZOLAM 2 MG/2 ML VIAL ONE; -ONDANSETRON 4 MG/2 ML VIAL IVP ONE; +ONDANSETRON 4 MG/2 ML VIAL IVP PRN; +PROPOFOL 10 MG/ML 20 ML VIAL IV ONE; -Pre Op ABX Message 1 EACH MISC MISCELLANE ONE; +SCOPOLAMINE 1 MG/72 HR PATCH TRANSDERM ONE; -SCOPOLAMINE 1.5MG/72HR PATCH TRANSDERM ONE; +fentaNYL (PF) 50 MCG/ML 2 ML AMP ONE
[2023-01-07 10:47] LABS: Glucose,Whole Blood 103 mg/dL (70-110)
[2023-01-07 11:00] VITALS: RESP 16; TEMP 97.8
--- NOTE | 2023-01-07 11:58 | P.OP ---
Date of Procedure: 01/07/23 Preoperative Diagnosis: Right carpal tunnel syndrome Postoperative Diagnosis: Right carpal tunnel syndrome Procedure(s) Performed: Right open carpal tunnel release Anesthesia: MAC Surgeon: Wilton Dickinson Rubber Calender Helper #1: Julio C Edwards Pathology: none sent Condition: stable Disposition: PACU Description of Procedure: This is a 42 year old female who presents today for a right open carpal tunnel release after having failed conservative treatment in the past. Risks and benefits of surgery were discussed with the patient including bleeding, damage to surrounding tissue, infection, need for further surgery as well as risks of anesthesia including pulmonary embolism and even and the patient wished to proceed with surgical intervention. The patients was seen in the pre-operative area by myself. Consent and H&P were completed and updated. The correct extremity was marked in the pre-operative area by myself and all other questions were answered. Operative Narrative: The patient was brought to the operating room by the department of anesthesia. They remained on the portable stretcher and a rolling hand table was brought to the side of the operative extremity. Pre-operative time out was performed indicating the correct patient, procedure and laterality. All in the room agreed. The patient was then drifted off to sleep by the department of anesthesia. MAC anesthesia was utilized and a 50:50 mixture of 1% Lidocaine and 0.5% bupivacaine was injected into the subcutaneous tissues of the palmar skin, 10ccs total. A nonsterile tourniquet was then applied to the operative extremity and the right upper extremity was then prepped and draped in normal sterile fashion. The operative extremity was the exsanguinated with an esmarch bandage and the tourniquet was inflated to 250mmHg. 15 blade scalpel was utilized to make a longitudinal incision on the palmar skin in line with the radial boarder of the ring finger to a point distally at the intersection of Kaplans cardinal line. Heiss retractor was utilized to spread subcutaneous tissue and scalpel was used to cut through the superficial palmar fascia to reveal the transverse carpal ligament. The transverse carpal ligament was then sharply incised in line with the incision and tenotomy scissors were used to spread distally and the distal portion of the transverse carpal ligament was released using tenotomy scissors from distal to proximal under direct visualization. The median nerve was directly visualized and was intact. Proximal fascia of the distal forearm was also released under direct visualization taking care to preserve the palmar cutaneous branch of the median nerve. The wound was then closed with 4-0 nylon suture in a horizontal mattress fashion. Sterile dressing was applied consisting of adaptic, 4x4s, webril, and an jarrett bandage. Tourniquet was let down and the hand immediately was well perfused. The patient was then woken by the department of anesthesia and transferred to PACU in stable condition. Julio C HENDERSON was present for the case to assist in major portions of the procedure. Wilton Dickinson D.O. Orthopedic Hand/Upper Extremity Surgeon
[2023-01-07 12:31] VITALS: BP 107/62; PULSE 92
== END | disposition home or self-care (01) ==
LOC: OR 10:00
PROVIDERS: ATTEND Orthopaedic Surgery Hand Surgery
DX: G56.01 Carpal tunnel syndrome, right upper limb (principal); E07.9 Disorder of thyroid, unspecified; Z79.890 Hormone replacement therapy; F10.20 Alcohol dependence, uncomplicated; M19.90 Unspecified osteoarthritis, unspecified site; Z79.52 Long term (current) use of systemic steroids
CPT/HCPCS: 81025; 64721; J2250; J1100; J0690; J2405; J2001; J3010; J2704

== ENCOUNTER → 2023-02-23 | Outpatient (CLI) | payer MEDICAID ==
[2023-02-23 15:52] LABS: T4, Free (Free Thyroxine) 1.12 ng/dL (0.80-1.80)
== END | disposition home or self-care (01) ==
LOC: LABWHC1 09:04
PROVIDERS: ATTEND Internal Medicine
DX: E06.3 Autoimmune thyroiditis (principal)
CPT/HCPCS: 36415; 84439; 84443

== ENCOUNTER 2023-06-24 09:29 | Day surgery (SDC) | payer MEDICAID ==
[2023-06-18 10:30] VITALS: BMI 25.8
--- NOTE | 2023-06-22 10:59 | P.HPOR ---
History of Present Illness H&P Date: 06/22/23 Subjective: This is a 42 year old female that presents today for follow up evaluation regarding a several month history of progressively worsening left hand paresthesias in the thumb, index, middle and ring fingers. The patient has tried bracing and PO steroids with little relief. She recently underwent a right open carpal tunnel release and responded well to surgery. The patient denies any inciting event or neck pain. Her symptoms are worse at night time when she is trying to sleep and often wake her up from sleep at night. Physical Examination: LUE: AIN/PIN/Radial/Ulnar/Median motor intact. Radial/Ulnar/Median SILT. 2+/4 Radial/Ulnar pulses palpated. 5/5 APB, 5/5 FDI. Negative Finkelsteins, negative CMC grind, positive Durkan's compression. EMG/NCV: 05/20/23 demonstrates mild left carpal tunnel syndrome Impression: 1.) Left carpal tunnel syndrome Plan: Diagnosis and treatment options were discussed with the patient. The patient has failed conservative treatment and would like to pursue a left open carpal tunnel release. Risks and benefits of surgery including bleeding, infection, damage to surrounding tissue, need for further surgery, residual numbness were discussed and the patient wished to go forward with surgery. I anticipate 2 weeks off work, this can be extended if needed at first post op appointment. -Wilton Dickinson DO Orthopedic Hand/Upper Extremity Surgeon Past Medical History Past Medical History: Thyroid Disorder Additional Past Medical History / Comment(s): Inflammatory arthritis, carpal tunnel syndrome LEFT hand. History of Any Multi-Drug Resistant Organisms: None Reported Past Surgical History: Orthopedic Surgery, Uterine Ablation Additional Past Surgical History / Comment(s): D&C, RT CTR Past Anesthesia/Blood Transfusion Reactions: Motion Sickness Additional Past Anesthesia/Blood Transfusion Reaction / Comment(s): RECEIVES PATCH FOR MOTION SICKNESS Smoking Status: Never smoker - Past Family History Father Family Medical History: Cancer Medications and Allergies Home Medications Medication Instructions Recorded Confirmed Type Ergocalciferol (Vitamin D2) 50,000 unit PO Q14D 07/20/18 06/18/23 History [Drisdol] Thyroid,Pork [[place] Thyroid] 90 mg PO DAILY 07/20/18 06/18/23 History Hydroxychloroquine Sulfate 200 mg PO BID 01/01/23 06/18/23 History [Plaquenil] predniSONE 5 mg PO DAILY 01/01/23 06/18/23 History Calcium Carbonate [Calcium] 600 mg PO DAILY 06/18/23 06/18/23 History Folic Acid 1 mg PO DAILY 06/18/23 06/18/23 History metHOTREXate sodium 10 mg PO MO 06/18/23 06/18/23 History Allergies Allergy/AdvReac Type Severity Reaction Status Date / Time No Known Allergies Allergy Verified 06/18/23 10:17 Physical Examination Osteopathic Statement: *. No significant issues noted on an osteopathic structural exam other than those noted in the History and Physical/Consult.
[~2023-06-24 09:29] MED LIST changes: -BUPIVACAINE (PF) 0.5% 30 ML VIAL SQ ONE; +DEXAMETHASONE SOD PHOSPHATE 4 MG/ML 1 ML VIAL IV ONE; -DEXAMETHASONE SOD PHOSPHATE 4 MG/ML 1 ML VIAL IVP ONE; +HYDROmorphone 0.5 MG/0.5 ML SYRINGE IVP PRN; -LIDOCAINE 1% INJ 10MG/ML (20 ML MDV) SQ ONE; -MIDAZOLAM 2 MG/2 ML VIAL ONE; +ONDANSETRON 4 MG/2 ML VIAL IVP ONE; -ONDANSETRON 4 MG/2 ML VIAL IVP PRN; -PROPOFOL 10 MG/ML 20 ML VIAL IV ONE; +Pre Op ABX Message 1 EACH MISC MISCELLANE ONE; +droPERidol 5 MG/2 ML VIAL IVP ONE; -fentaNYL (PF) 50 MCG/ML 2 ML AMP ONE
[2023-06-24] MEDS ORDERED: LACTATED RINGERS 1,000 ML IV ONE (09:56)
[2023-06-24 09:57] LABS: Glucose,Whole Blood 88 mg/dL (70-110)
[2023-06-24 10:07] VITALS: TEMP 97.2
[2023-06-24] MEDS ORDERED: HYDROCORTISONE SUCCINATE 100 MG/2 ML VIAL IVP ONE (10:10)
[2023-06-24] MEDS ORDERED: fentaNYL (PF) 50 MCG/ML 2 ML AMP ONE (10:17)
[2023-06-24] MEDS ORDERED: PROPOFOL 10 MG/ML 20 ML VIAL IV ONE (10:17)
[2023-06-24] MEDS ORDERED: MIDAZOLAM 2 MG/2 ML VIAL ONE (10:17)
[2023-06-24] MEDS ORDERED: BUPIVACAINE (PF) 0.5% 30 ML VIAL SQ ONE (10:31)
[2023-06-24] MEDS ORDERED: LIDOCAINE 1% INJ 10MG/ML (20 ML MDV) SQ ONE (10:31)
--- NOTE | 2023-06-24 10:45 | P.OP ---
Date of Procedure: 06/24/23 Preoperative Diagnosis: Left carpal tunnel syndrome Postoperative Diagnosis: Left carpal tunnel syndrome Procedure(s) Performed: Left open carpal tunnel release Anesthesia: MAC Surgeon: Wilton Dickinson Dining Car Waiter/Waitress #1: Julio C Edwards Estimated Blood Loss (ml): 0 Pathology: other (Left flexor tenosynovium evaluate for amyloid) Condition: stable Disposition: PACU Description of Procedure: This is a 42 year old female who presents today for a left open carpal tunnel release after having failed conservative treatment in the past. Risks and benefits of surgery were discussed with the patient including bleeding, damage to surrounding tissue, infection, need for further surgery as well as risks of anesthesia including pulmonary embolism and even and the patient wished to proceed with surgical intervention. The patients was seen in the pre-operative area by myself. Consent and H&P were completed and updated. The correct extremity was marked in the pre-operative area by myself and all other questions were answered. Operative Narrative: The patient was brought to the operating room by the department of anesthesia. They remained on the portable stretcher and a rolling hand table was brought to the side of the operative extremity. Pre-operative time out was performed indicating the correct patient, procedure and laterality. All in the room agreed. The patient was then drifted off to sleep by the department of anesthesia. MAC anesthesia was utilized and a 50:50 mixture of 1% Lidocaine and 0.5% bupivacaine was injected into the subcutaneous tissues of the palmar skin, 8ccs total. A nonsterile tourniquet was then applied to the operative extremity and the left upper extremity was then prepped and draped in normal sterile fashion. The operative extremity was the exsanguinated with an esmarch bandage and the tourniquet was inflated to 250mmHg. 15 blade scalpel was utilized to make a longitudinal incision on the palmar skin in line with the radial boarder of the ring finger to a point distally at the intersection of Kaplans cardinal line. Heiss retractor was utilized to spread subcutaneous tissue and scalpel was used to cut through the superficial palmar fascia to reveal the transverse carpal ligament. The transverse carpal ligament was then sharply incised in line with the incision and tenotomy scissors were used to spread distally and the distal portion of the transverse carpal ligament was released using tenotomy scissors from distal to proximal under direct visualization. The median nerve was directly visualized and was intact. Proximal fascia of the distal forearm was also released under direct visualization taking care to preserve the palmar cutaneous branch of the median nerve. Small amount of flexor tenosynovium was then collected and sent for pathology. The wound was then closed with 4-0 nylon suture in a horizontal mattress fashion. Sterile dressing was applied consisting of adaptic, 4x4s, webril, and an jarrett bandage. Tourniquet was let down and the hand immediately was well perfused. The patient was then woken by the department of anesthesia and transferred to PACU in stable condition. Wilton Dickinson D.O. Orthopedic Hand/Upper Extremity Surgeon
[2023-06-24 11:18] VITALS: BP 119/69; PULSE 87; RESP 20
== END 2023-06-24 11:51 | disposition home or self-care (01) ==
LOC: OR 09:29
PROVIDERS: ATTEND Orthopaedic Surgery Hand Surgery
DX: G56.02 Carpal tunnel syndrome, left upper limb (principal); E07.9 Disorder of thyroid, unspecified; M06.9 Rheumatoid arthritis, unspecified; M19.90 Unspecified osteoarthritis, unspecified site; Z79.890 Hormone replacement therapy; Z79.899 Other long term (current) drug therapy; Z98.890 Other specified postprocedural states
CPT/HCPCS: 81025; 88305; 64721; J2250; J1100; J1720; J2405; J2001; J3010; J2704; J0665; 88313

== ENCOUNTER → 2023-09-02 | Outpatient (CLI) | payer MEDICAID ==
[2023-09-02 13:14] LABS: Appearance,Urine Clear (Clear); Bilirubin,Urine Negative (Negative); Blood,Urine Negative (Negative); Color,Urine Light Yellow; Glucose,Urine (UA) Negative (Negative); Ketones,Urine Negative (Negative); Leukocyte Esterase,Urine Negative (Negative); Nitrite,Urine Negative (Negative); PH, Urine 5.5 (5.0-8.0); Protein,Urine Negative (Negative); Specific Gravity,Urine 1.021 (1.001-1.035); Urobilinogen,Urine <2.0 mg/dL (<2.0)
[2023-09-02 14:56] LABS: HCT 41.2 % (37.2-46.3); HGB 13.7 g/dL (12.0-15.0); MCHC 33.3 g/dL (32.0-37.0); MCV 90.2 FL (80.0-97.0); Mean Platelet Volume 10.9 FL (9.5-12.2); NRBC Per 100 WBC 0 X 10*3/uL (0.00-0.01); Platelet Count 193 X 10*3/uL (140-440); RBC 4.57 X 10*6/uL (4.10-5.20); RDW 13.1 % (11.5-14.5); WBC 6.57 X 10*3/uL (4.50-10.00)
[2023-09-02 15:38] LABS: AST 15 U/L (13-35); Albumin 4.3 g/dL (3.8-4.9); Albumin/Globulin Ratio 1.87 Ratio (1.60-3.17); BUN/Creat Ratio 19.14 Ratio (12.00-20.00); Blood Urea Nitrogen 13.4 mg/dL (9.0-27.0); Calcium 9.6 mg/dL (8.7-10.3); Carbon Dioxide 26.4 mmol/L (21.6-31.8); Chloride 103 mmol/L (96-109); Chol/HDL Ratio 3.16 Ratio; Globulin 2.3 g/dL (1.6-3.3); Glucose 97 mg/dL (70-110); LDL Cholesterol,Calculated 112.7 mg/dL (0.0-131.0); Magnesium 1.7 mg/dL (1.5-2.4); Potassium 4.1 mmol/L (3.5-5.5); Sodium 140 mmol/L (135-145); Total Bilirubin 0.8 mg/dL (0.3-1.2); Total Protein 6.6 g/dL (6.2-8.2); VLDL Calculation 16.36 mg/dL (5.00-40.00)
[2023-09-02 15:39] LABS: ALT 16 U/L (8-44); Alkaline Phosphatase 65 U/L (41-126)
== END | disposition home or self-care (01) ==
LOC: LABWHC1 08:35
PROVIDERS: ATTEND Internal Medicine
DX: I10 Essential (primary) hypertension (principal); E03.9 Hypothyroidism, unspecified; E55.9 Vitamin D deficiency, unspecified
CPT/HCPCS: 36415; 80053; 80061; 81003; 82306; 83036; 83735; 84443; 85027

== ENCOUNTER → 2023-10-06 | Outpatient (CLI) | payer MEDICAID ==
--- NOTE | 2023-10-06 13:47 | US ---
EXAMINATION TYPE: US transvaginal DATE OF EXAM: 10/06/2023 COMPARISON: 07/02/2018 CLINICAL INDICATION: Female, 43 years old with history of R87.619 [place]EST ON PAP SMEAR; Hx endometrial a blation resulting in no menses. Abnormal pap smear. TECHNIQUE: Transvaginal (TV) Date of LMP: unknown, EXAM MEASUREMENTS: Uterus: 7.2 x 4.4 x 3.8 cm Endometrial Stripe: 0.2 cm Right Ovary: 2.3 x 1.2 x 1.4 cm Left Ovary: 2.0 x 1.0 x 1.4 cm 1. Uterus: Anteverted Slightly heterogenous 2. Endometrium: history of ablation, high density foci could represent sequela prior ablation. 3. Right Ovary: wnl 4. Left Ovary: wnl 5. Bilateral Adnexa: no lesions or free fluid visualized 6. Posterior cul-de-sac: no free fluid IMPRESSION: 1. No evidence for acute process. 2. Endometrium within normal limits for thickness with post ablation changes
--- NOTE | 2023-10-07 09:24 | MM ---
Reason for Exam: Screening (asymptomatic). Last screening mammogram was performed 12 month(s) ago. Patient History: Menarche at age 15. First Full-Term at age 25. Postmenopausal. Risk Values: Iris 5 year model risk: 0.8%. NCI Lifetime model risk: 9.7%. Prior Study Comparison: 05/09/2020 Bilateral Screening Mammogram, [facility]. 07/15/2021 Bilateral Screening Mammogram, [facility]. 09/16/2022 Bilateral MG 3D screening mammo w/cad, [facility]. Tissue Density: The breast tissue is heterogeneously dense. This may lower the sensitivity of mammography. Findings: Analyzed By CAD. There is no suspicious group of microcalcifications or new suspicious mass. Overall Assessment: Negative, BI-RAD 1 Management: Screening Mammogram of both breasts in [address] [facility] will attempt to contact patient to return for supplemental views and ultrasound if indicated. Patient should continue monthly self-breast exams. A clinical breast exam by your physician is recommended on an annual basis. This exam should not preclude additional follow-up of suspicious palpable abnormalities. Note on Iris scores and lifetime risk: 1. A Iris score greater than 3% is considered moderate risk. If this is the case, consider specialist referral to assess eligibility for a risk reducing agent. 2. If overall lifetime risk for the development of breast cancer is 20% or higher, the patient may qualify for future screening with alternating mammogram and breast MRI. Electronically signed and approved by: Nathaniel Swift DO
== END | disposition home or self-care (01) ==
LOC: RADUSWWP 13:01
PROVIDERS: ATTEND Obstetrics & Gynecology
DX: Z12.31 Encounter for screening mammogram for malignant neoplasm of breast (principal); R87.619 Unspecified abnormal cytological findings in specimens from cervix uteri; Z78.0 Asymptomatic menopausal state
CPT/HCPCS: 76830; 77063; 77067

== ENCOUNTER → 2024-02-12 | Outpatient (CLI) | payer MEDICAID ==
[2024-02-12 15:10] LABS: Basophils # (A) 0.03 X 10*3/uL (0.00-0.10); Basophils % (A) 0.6 %; Eosinophils % (A) 2.1 %; HCT 44.4 % (37.2-46.3); HGB 14.7 g/dL (12.0-15.0); Lymphocytes # (A) 1.29 X 10*3/uL (0.90-5.00); Lymphocytes % (A) 27.4 %; MCH 30.4 pg (27.0-32.0); MCHC 33.1 g/dL (32.0-37.0); MCV 91.7 FL (80.0-97.0); Mean Platelet Volume 11.6 FL (9.5-12.2); Monocytes % (A) 10.6 %; NRBC Per 100 WBC 0 X 10*3/uL (0.00-0.01); Neutrophils # (A) 2.77 X 10*3/uL (1.80-7.70); Neutrophils % (A) 58.9 %; Platelet Count 207 X 10*3/uL (140-440); RBC 4.84 X 10*6/uL (4.10-5.20); WBC 4.71 X 10*3/uL (4.50-10.00)
[2024-02-12 15:39] LABS: Appearance,Urine Clear (Clear); Bilirubin,Urine Negative (Negative); Blood,Urine Negative (Negative); Color,Urine Yellow (Yellow); Ketones,Urine Negative (Negative); Nitrite,Urine Negative (Negative); PH, Urine 5.5; Urobilinogen,Urine 0.2 E.U./DL
[2024-02-12 15:50] LABS: Bacteria,Urine None Seen (None Seen)
[2024-02-12 18:18] LABS: ALT 23 U/L (8-44); AST 23 U/L (13-35); Albumin 4.8 g/dL (3.8-4.9); Alkaline Phosphatase 90 U/L (41-126); BUN/Creat Ratio 17.83 Ratio (12.00-20.00); Blood Urea Nitrogen 10.7 mg/dL (9.0-27.0); Calcium 9.9 mg/dL (8.7-10.3); Carbon Dioxide 25.5 mmol/L (21.6-31.8); Chloride 103 mmol/L (96-109); Chol/HDL Ratio 3.59 Ratio; Globulin 2.4 g/dL (1.6-3.3); Glucose 91 mg/dL (70-110); LDL Cholesterol,Calculated 126.2 mg/dL (0.0-131.0); Potassium 4.3 mmol/L (3.5-5.5); Sodium 140 mmol/L (135-145); T4, Free (Free Thyroxine) 0.85 ng/dL (0.80-1.80); Total Bilirubin 0.6 mg/dL (0.3-1.2); Total Protein 7.2 g/dL (6.2-8.2); Uric Acid 4.3 mg/dL (2.9-7.7)
== END | disposition home or self-care (01) ==
LOC: LABWHC1 09:18
PROVIDERS: ATTEND Internal Medicine
DX: Z00.00 Encounter for general adult medical examination without abnormal findings (principal); I10 Essential (primary) hypertension; E06.3 Autoimmune thyroiditis; E55.9 Vitamin D deficiency, unspecified; E03.9 Hypothyroidism, unspecified; E78.89 Other lipoprotein metabolism disorders; Z78.9 Other specified health status; Z11.1 Encounter for screening for respiratory tuberculosis
CPT/HCPCS: 36415; 80053; 80061; 81001; 82306; 83735; 84439; 84443; 84550; 85025; 86480; 86706

== ENCOUNTER 2024-03-25 06:23 | Day surgery (SDC) | payer MEDICAID ==
[2024-03-21 17:52] VITALS: BMI 26.6
[~2024-03-25 06:23] MED LIST changes: -DEXAMETHASONE SOD PHOSPHATE 4 MG/ML 1 ML VIAL IV ONE; -HYDROmorphone 0.5 MG/0.5 ML SYRINGE IVP PRN; -LIDOCAINE 1% (10MG/ML) FOR IV START INTRADERMA PRN; -ONDANSETRON 4 MG/2 ML VIAL IVP ONE; -Pre Op ABX Message 1 EACH MISC MISCELLANE ONE; -SCOPOLAMINE 1 MG/72 HR PATCH TRANSDERM ONE; -droPERidol 5 MG/2 ML VIAL IVP ONE
[2024-03-25] MEDS: IV FLUID CONTINUATION 1,000 ML IV ONE (06:34)
[2024-03-25 06:43] VITALS: TEMP 97.8
[2024-03-25] MEDS ORDERED: PROPOFOL 10 MG/ML 20 ML VIAL IV ONE (07:11)
[2024-03-25] MEDS ORDERED: LIDOCAINE 1% INJ 10MG/ML (20 ML MDV) ONE (07:11)
--- NOTE | 2024-03-25 07:37 | P.PCN ---
Date of Procedure: 03/25/24 Procedure(s) Performed: BRIEF HISTORY: Patient is a 43-year-old pleasant white female scheduled for an elective colonoscopy as a part of screening for colon cancer and family history of colon cancer. Her paternal grandmother and maternal grandmother both were diagnosed with colon cancer in the 60s. PROCEDURE PERFORMED: Colonoscopy. PREOPERATIVE DIAGNOSIS: Screening for colon cancer/family history of colon cancer. IV sedation per Anesthesia. PROCEDURE: After informed consent was obtained, the patient, was brought into the endoscopy unit. IV sedation was administered by Anesthesia under continuous monitoring. Digital rectal examination was normal. Initially the Olympus CF-160 flexible video colonoscope was then inserted in the rectum, gradually advanced into the cecum without any difficulty. Careful examination was performed as the scope was gradually being withdrawn. Ileocecal valve and the appendiceal orifice were visualized and appeared normal. Prep was excellent. Mucosa of the cecum, ascending colon, transverse colon, descending colon, sigmoid colon, and rectum appeared normal. Retroflexion was performed in the rectum and no lesions were seen. The patient tolerated the procedure well. IMPRESSION: Normal-appearing colon from rectum to cecum with no evidence of colorectal neoplasia. RECOMMENDATIONS: Findings of this examination were discussed with the patient as well as her family. She was advised to have repeat screening colonoscopy every 5 years because of the family history of colon cancer.
[2024-03-25 07:39] VITALS: RESP 14
[2024-03-25 08:09] VITALS: BP 127/81; PULSE 75
== END 2024-03-25 08:26 | disposition home or self-care (01) ==
LOC: ORWHC2ENDO 06:23
PROVIDERS: ATTEND Internal Medicine Gastroenterology
DX: Z12.11 Encounter for screening for malignant neoplasm of colon (principal); Z80.0 Family history of malignant neoplasm of digestive organs; E03.9 Hypothyroidism, unspecified; Z79.890 Hormone replacement therapy
CPT/HCPCS: 81025; 45378; J2001; J2704

== ENCOUNTER → 2024-05-03 | Outpatient (CLI) | payer MEDICAID | END | disposition home or self-care (01) | LOC: LABWHC1 14:42 | DX: M06.011 Rheumatoid arthritis without rheumatoid factor, right shoulder (principal) | CPT/HCPCS: 36415; 85652 ==

== ENCOUNTER → 2024-09-09 | Outpatient (CLI) | payer MEDICAID ==
--- NOTE | 2024-09-09 17:41 | XR ---
EXAMINATION TYPE: XR chest 2V DATE OF EXAM: 09/09/2024 5:30 PM COMPARISON: Previous CT study 10/07/2022. CLINICAL INDICATION: Female, 44 years old with history of COUGH R05.9/ INFLAMATORY ARTHRITIS M19.90 Z 51.81; [facility] TECHNIQUE: XR chest 2V Frontal and lateral views of the chest. FINDINGS: Lungs/Pleura: There is no evidence of pleural effusion, focal consolidation, or pneumothorax. Pulmonary vascularity: Unremarkable. Heart/mediastinum: Cardiomediastinal silhouette is unremarkable. Musculoskeletal: No acute osseous pathology. Other findings: None IMPRESSION: No acute cardiopulmonary disease/process. [facility], , 09/09/2024 5:38 PM
== END | disposition home or self-care (01) ==
LOC: RADXRMAIN 17:18
PROVIDERS: ATTEND Internal Medicine Rheumatology
DX: Z51.81 Encounter for therapeutic drug level monitoring (principal); R05.9 Cough, unspecified; M19.90 Unspecified osteoarthritis, unspecified site
CPT/HCPCS: 71046

== ENCOUNTER → 2024-09-13 | Outpatient (CLI) | payer MEDICAID ==
[2024-09-13 15:15] LABS: Albumin 4.5 g/dL (3.8-4.9); Albumin/Globulin Ratio 1.96 Ratio (1.60-3.17); Bilirubin, Conjugated 0.31 mg/dL (0.20-0.40); Bilirubin,Unconjugated 0.49 mg/dL (0.20-1.00); Globulin 2.3 g/dL (1.6-3.3); Total Bilirubin 0.8 mg/dL (0.3-1.2); Total Protein 6.8 g/dL (6.2-8.2)
== END | disposition home or self-care (01) ==
LOC: LABWHC1 08:28
PROVIDERS: ATTEND Internal Medicine Rheumatology
DX: Z51.81 Encounter for therapeutic drug level monitoring (principal); M19.90 Unspecified osteoarthritis, unspecified site; R79.89 Other specified abnormal findings of blood chemistry; R05.9 Cough, unspecified
CPT/HCPCS: 36415; 80076

== ENCOUNTER → 2025-01-27 | Outpatient (CLI) | payer MEDICAID ==
[2025-01-27 15:16] LABS: Basophils # (A) 0.03 X 10*3/uL (0.00-0.10); Basophils % (A) 0.5 %; Eosinophils # (A) 0.16 X 10*3/uL (0.04-0.35); Eosinophils % (A) 2.5 %; HCT 42.3 % (37.2-46.3); HGB 14.1 g/dL (12.0-15.0); Lymphocytes # (A) 1.67 X 10*3/uL (0.90-5.00); Lymphocytes % (A) 25.7 %; MCH 30.3 pg (27.0-32.0); MCHC 33.3 g/dL (32.0-37.0); MCV 90.8 FL (80.0-97.0); Monocytes # (A) 0.57 X 10*3/uL (0.20-1.00); Monocytes % (A) 8.8 %; NRBC Per 100 WBC 0 X 10*3/uL (0.00-0.01); Neutrophils # (A) 4.06 X 10*3/uL (1.80-7.70); Neutrophils % (A) 62.2 %; Platelet Count 247 X 10*3/uL (140-440); RBC 4.66 X 10*6/uL (4.10-5.20); WBC 6.51 X 10*3/uL (4.50-10.00)
[2025-01-27 15:36] LABS: Erythrocyte Sedimentation Rate 13 mm/Hr (0-20)
[2025-01-27 15:49] LABS: ALT 27 U/L (8-44); AST 23 U/L (13-35); Albumin 4.3 g/dL (3.8-4.9); Albumin/Globulin Ratio 1.59 Ratio (1.60-3.17); Alkaline Phosphatase 126 U/L (41-126); Blood Urea Nitrogen 12.3 mg/dL (9.0-27.0); Calcium 9.6 mg/dL (8.7-10.3); Carbon Dioxide 25.8 mmol/L (21.6-31.8); Chloride 104 mmol/L (96-109); Chol/HDL Ratio 4.54 Ratio; Globulin 2.7 g/dL (1.6-3.3); Glucose 94 mg/dL (70-110); LDL Cholesterol,Calculated 152.9 mg/dL (0.0-131.0); Magnesium 1.9 mg/dL (1.5-2.4); Potassium 4.6 mmol/L (3.5-5.5); Sodium 142 mmol/L (135-145); T4, Free (Free Thyroxine) 0.62 ng/dL (0.80-1.80); Total Bilirubin 0.5 mg/dL (0.3-1.2); Uric Acid 4.5 mg/dL (2.9-7.7)
== END | disposition home or self-care (01) ==
LOC: LABWHC1 09:05
PROVIDERS: ATTEND Internal Medicine
DX: Z00.00 Encounter for general adult medical examination without abnormal findings (principal); Z51.81 Encounter for therapeutic drug level monitoring; I10 Essential (primary) hypertension; E78.5 Hyperlipidemia, unspecified; E55.9 Vitamin D deficiency, unspecified; E78.89 Other lipoprotein metabolism disorders; M19.90 Unspecified osteoarthritis, unspecified site; R73.01 Impaired fasting glucose
CPT/HCPCS: 36415; 80053; 80061; 82306; 83036; 83735; 84439; 84443; 84550; 85025; 85652; 86140